=== PATIENT | female | born 1970 | race Caucasian/White ===

== ENCOUNTER 2019-08-27 12:33 | Outpatient (CLI) | payer OTHER | END 2019-08-27 23:59 | disposition home or self-care (01) | LOC: CVU 12:33 → EDSTATUS 13:00 → CVU 23:59 | PROVIDERS: ATTEND Internal Medicine Cardiovascular Disease | DX: R06.02 Shortness of breath (principal); R07.9 Chest pain, unspecified | CPT/HCPCS: 93306; 93356 ==